=== PATIENT | female | born 1955 | race African-American/Black ===

== ENCOUNTER 2018-04-04 10:17 | Inpatient (IN) | payer OTHER ==
[2018-04-04 10:57] VITALS: BMI 25.7
--- NOTE | 2018-04-04 14:16 | HP ---
CIWA Score - Admission Criteria [facility] Guidelines: Admission for Medically Managed Detox: Requires at least one of the followin. CIWA greater than 12 2. Seizures within the past 24 hours 3. Delirium tremens within the past 24 hours 4. Hallucinations within the past 24 hours 5. Acute intervention needed for co occurring medical disorder 6. Acute intervention needed for co occurring psychiatric disorder 7. Severe withdrawal that cannot be handled at a lower level of care (continued vomiting, continued diarrhea, abnormal vital signs) requiring intravenous medication and/or fluids 8. Admission ROS S - HPI Chief Complaint: i am here for rehab from alcohol,cocaine and marijuana a Allergies/Adverse Reactions: Allergies Allergy/AdvReac Type Severity Reaction Status Date / Time dorzolamide Allergy Severe Itching Verified 04/04/18 14:03 History of Present Illness: this 63 years old female with alcohol,cocaine and marijuana dependence seeking rehab,last treatment [facility] 2014 [facility], stated seen by opth on 04/02/18 use new eyedrop ,has itching and tearing after,stated has allergic reaction to this medicine before cataract surgery in 2017 both glaucoma right eye since 2018 itching around periorbital area,no pain type 2 dm,htn schizophrenia,bipolar disorder for rehab - Ebola screening Have you traveled outside of the country in the last 21 days: No Have you had contact with anyone from an Ebola affected area: No Have you been sick,other than usual withdrawal symptoms: No - Review of Systems Constitutional: No Symptoms Reported EENT: reports: Other (s/p cataract surgery both eyes glaucma right eyes since 2018 ithching and tearing of right eye after [id number]/timolo maleate) Respiratory: reports: No Symptoms reported Cardiac: reports: No Symptoms Reported GI: reports: No Symptoms Reported : reports: No Symptoms Reported Musculoskeletal: reports: No Symptoms Reported Integumentary: reports: No Symptoms Reported Neuro: reports: No Symptoms reported Endocrine: reports: No Symptoms Reported Hematology: reports: No Symptoms Reported Psychiatric: reports: No Sypmtoms Reported, Judgement Intact, Mood/Affect Appropiate, Orientated x3, other (schizophrenia) Patient History - Patient Medical History Hx Asthma: Yes Hx Chronic Obstructive Pulmonary Disease (COPD): No Hx Cardiac Disorders: No Hx Hypertension: Yes (on meds.) Hx Seizures: No Hx Diabetes: Yes (on med) Hx Gastrointestinal Disorders: Yes (Pt has a hx of acid reflux.) Hx Liver Disease: No Hx Genitourinary Disorders: No Hx Sexually Transmitted Disorders: No Hx Renal Disease (ESRD): No Hx Thyroid Disease: No Hx Human Immunodeficiency Virus (HIV): No (last 2018 nrgative) Hx Hepatitis C: No Hx Depression: Yes Hx Suicide Attempt: No Hx Schizophrenia: No Other Medical History: no suicidal,no homicidal - Patient Surgical History Past Surgical History: Yes Hx Cataract Extraction: Yes (bilateral eyes in 2017) Other Surgical History: Sx for ectopic sx in 1981 - PPD History Previous Implant?: Yes Documented Results: Positive w/o proof Implanted On Prior R Admission?: No - Reproductive History Patient is a Female of Child Bearing Age (11 -55 yrs old): No Patient : No - Smoking Cessation Smoking history: Never smoked - Substance & Tx. History Hx Alcohol Use: Yes Hx Substance Use: Yes Substance Use Type: Alcohol, Cocaine Hx Substance Use Treatment: Yes ([facility] in [facility]) - Substances Abused Crack Route: Smoking Frequency: 1-3 times last 30 days Amount used: $800 Age of first use: 39 Date of Last Use: 04/01/18 Alcohol Route: Oral Frequency: 1-3 times last 30 days Amount used: 1-2 PINTS Age of first use: 12 Date of Last Use: 04/01/18 Family Disease History - Family Disease History Family History: Denies Family Disease History: Other: Father (), Mother (), Brother ( ) Admission Physical Exam [facility] - Vital Signs Vital Signs: Vital Signs - 24 hr 04/04/18 10:55 Temperature 98.2 F Pulse Rate 65 Respiratory 20 Rate Blood Pressure 137/78 - Physical General Appearance: Yes: Within Normal Limits HEENTM: Yes: Pharynx Normal, Other (tearing and itching right eye vision ok s/p cataract surgery both eyes glaucoma right eye) Respiratory: Yes: Lungs Clear, Normal Breath Sounds, No Respiratory Distress Neck: Yes: Within Normal Limits, Supple, Trachea in good position Breast: Yes: Breast Exam Deferred Cardiology: Yes: Within Normal Limits, Regular Rate, S1, S2 Abdominal: Yes: Within Normal Limits, Normal Bowel Sounds, Non Tender, Soft Genitourinary: Yes: Within Normal Limits Back: Yes: Within Normal Limits Musculoskeletal: Yes: Within Normal Limits Extremities: Yes: Within Normal Limits, Normal Inspection, Normal Range of Motion Neurological: Yes: Within Normal Limits, 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, Fully Oriented, Alert, Motor Strength 5/5 Integumentary: Yes: Within Normal Limits Lymphatic: Yes: Within Normal Limits - Diagnostic (1) Alcohol abuse Current Visit: Yes Status: Acute (2) Cocaine abuse Current Visit: Yes Status: Acute (3) Hypertension Current Visit: Yes Status: Acute (4) DM2 (diabetes mellitus, type 2) Current Visit: Yes Status: Acute (5) Schizophrenia Current Visit: Yes Status: Acute (6) Allergic eye reaction Current Visit: Yes Status: Acute Cleared for Admission [facility] - Detox or Rehab Claeared for Rehab Admission: Yes [facility] Breath Alcohol Content Breath Alcohol Content: 0 Urine Pregancy Test - Result Urine Test Results: Negative- NO Line Present Urine Drug Screen - Results Drug Screen Negative: No Urine Drug Screen Results: THC-Marijuana, AYANNA-Cocaine Inpatient Rehab Admission - Rehab Decision to Admit Inpatient rehab admission?: Yes - Initial Determination Are CD services needed?: Yes Free of communicable disease: Yes Not in need of hospitalization: Yes - Rehab Admission Criteria Previous failed treatment: Yes Poor recovery environment: Yes Comorbidities: Yes Lacks judgement: No Patient is meeting Inpatient Rehab admission criteria:: Yes
[2018-04-04] MEDS ORDERED: MAGNESIUM CITRATE 300 ML BOTTLE PO PRN (14:32)
[2018-04-04] MEDS ORDERED: LOPERAMIDE HCL 2 MG CAPSULE PO PRN (14:32)
[2018-04-04] MEDS ORDERED: MENTHOL/PHENOL 1 EACH UD MM PRN (14:32)
[2018-04-04] MEDS ORDERED: MAGNESIUM HYDROX 2400MG/30ML ORAL SUSPENSION 30 ML CUP PO PRN (14:32)
[2018-04-04] MEDS ORDERED: ACETAMINOPHEN 325 MG TABLET (FP) PO PRN (14:32)
[2018-04-04] MEDS ORDERED: MAG HYDROX/AL HYDROX/SIMETH 30 ML UNIT-DOSE CUP PO PRN (14:32)
[2018-04-04] MEDS ORDERED: P-EPHED 60MG/TRIPROLIDI 2.5MG TABLET PO PRN (14:32)
[2018-04-04] MEDS ORDERED: guaiFENesin/D-METHORPHAN HB 10 ML UNIT-DOSE CUPS PO PRN (14:32)
[2018-04-04] MEDS ORDERED: IBUPROFEN 400 MG TABLET (FP) PO PRN (14:32)
[2018-04-04] MEDS ORDERED: hydrOXYzine PAMOATE 25 MG CAPSULE (FP) PO PRN (14:32)
[2018-04-04] MEDS ORDERED: NAPROXEN 500 MG TABLET (FP) PO PRN (14:37)
[2018-04-04] MEDS ORDERED: ALBUTEROL SO4 8 GM HFA INHALER IH PRN (14:37)
[2018-04-04] MEDS ORDERED: DOCUSATE SODIUM 100 MG CAPSULE (FP) PO PRN (14:37)
[2018-04-04] MEDS ORDERED: LATANOPROST 0.005% OPHTH SOLN 2.5ML BOTTLE OU SCH (22:00)
[2018-04-04] MEDS ORDERED: MELATONIN 5 MG TABLETS PO PRN (22:00)
[2018-04-04] MEDS ORDERED: THIAMINE HCL 100 MG TABLET (FP) PO SCH (22:00)
[2018-04-04] MEDS: BUDESONIDE/FORMETEROL FUMARATE 160/4.5 mcg INHALER IH SCH (22:23)
[2018-04-04] MEDS: RANITIDINE HCL 150 MG TABLET (FP) PO SCH (22:25)
[2018-04-04] MEDS: TIMOLOL 0.25% OPHTHALMIC SOL 5 ML BOTTLE OU SCH (22:40)
[2018-04-04 23:20] LABS: URINE APPEARANCE TURBID; URINE BILIRUBIN NEGATIVE (<2.0 mg/dL); URINE COLOR YELLOW; URINE GLUCOSE (UA) NEGATIVE (NEGATIVE); URINE KETONE TRACE (NEGATIVE); URINE LEUK ESTERASE NEGATIVE (NEGATIVE); URINE NITRITE NEGATIVE (NEGATIVE); URINE PROTEIN NEGATIVE (NEGATIVE); URINE UROBILINOGEN 4.0 E.U/dl mg/dL (0.2-1.0)
[2018-04-05] MEDS ORDERED: metFORMIN HCL 500 MG TABLET (FP) PO SCH (07:00)
[2018-04-05 07:17] VITALS: TEMP 98.5
[2018-04-05] MEDS ORDERED: LISINOPRIL 10 MG TABLET (FP) PO SCH (10:00)
[2018-04-05] MEDS ORDERED: amLODIPine BESYLATE 10 MG TABLET (FP) PO SCH (10:00)
[2018-04-05] MEDS ORDERED: HYDROCHLOROTHIAZIDE 12.5 MG CAPSULE (FP) PO SCH (10:00)
[2018-04-05] MEDS ORDERED: ASPIRIN COATED 81 MG TABLET.EC PO SCH (10:00)
[2018-04-05] MEDS ORDERED: CALCIUM 500MG/VIT-D 200 UNITS COMBO TABLET (FP) PO SCH (10:00)
[2018-04-05] MEDS ORDERED: PRENATAL VITAMINS W/ FOLIC ACID TABLET (FP) PO SCH (10:00)
[2018-04-05] MEDS: RANITIDINE HCL 150 MG TABLET (FP) PO SCH (10:48)
[2018-04-05] MEDS: BUDESONIDE/FORMETEROL FUMARATE 160/4.5 mcg INHALER IH SCH (10:48)
[2018-04-05 10:49] VITALS: BP 149/85; PULSE 67
[2018-04-05] MEDS: TIMOLOL 0.25% OPHTHALMIC SOL 5 ML BOTTLE OU SCH (10:49)
[2018-04-05 10:50] LABS: HEMATOCRIT 39.3 % (32.4-45.2); HEMOGLOBIN 12.8 GM/dL (10.7-15.3); MCHC 32.6 g/dl (32.0-36.0); MEAN CELL VOLUME 82.9 fl (80-96); PLATELET COUNT 308 K/MM3 (134-434); RBC 4.74 M/mm3 (3.60-5.2); RDW 15.1 % (11.6-15.6); WHITE BLOOD COUNT 5.2 K/mm3 (4.0-10.0)
[2018-04-05 10:58] LABS: ALBUMIN 3.8 g/dl (3.4-5.0); ALK PHOS 80 U/L (45-117); ANION GAP 7 MMOL/L (8-16); BILIRUBIN,TOTAL 0.4 mg/dL (0.2-1); BLOOD UREA NITROGEN 19 mg/dL (7-18); CALCIUM 8.7 mg/dL (8.5-10.1); CHLORIDE 106 mmol/L (98-107); CO2 27 mmol/L (21-32); CREATININE 1.1 mg/dL (0.55-1.3); GLUCOSE,RANDOM 82 mg/dL (74-106); POTASSIUM 4.1 mmol/L (3.5-5.1); SGOT/AST 63 U/L (15-37); SGPT/ALT 29 U/L (13-61); SODIUM 140 mmol/L (136-145); TOT PROT 7.1 g/dl (6.4-8.2)
--- NOTE | 2018-04-05 15:50 | PN ---
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 PT REPORTS SHE HAS A PMD DR. MARY COCHRAN AT [facility] AND WILL FOLLOW UP WITH HER NEEDED. REPORTS SHE HAS OWN MEDS AT HOME. ALERT O X 3. Home Medications Medication Instructions Recorded Albuterol Sulfate Inhaler - 2 inh PO Q6H PRN 04/04/18 [Ventolin Hfa Inhaler -] Amlodipine Besylate [Norvasc -] 10 mg PO DAILY 04/04/18 Aripiprazole [Abilify -] 15 mg PO DAILY 04/04/18 Aspirin [Aspirin EC] 81 mg PO DAILY 04/04/18 Budesonide/Formeterol Fumarate 2 inh PO BID 04/04/18 [SYMBICORT 160/4.5mcg -] Bupropion HCl [Bupropion HCl Sr] 100 mg PO BID 04/04/18 Calcium Carbonate/Vitamin D3 1 each PO DAILY 04/04/18 [Calcium 600 + D3 Softgel] Docusate Sodium [Colace -] 100 mg PO TID PRN 04/04/18 Doxepin HCl [Sinequan -] 25 mg PO HS PRN 04/04/18 Gabapentin [Neurontin -] 300 mg PO Q8H 04/04/18 Ketotifen Fumarate [Itchy Eye] 5 ml OU BID 04/04/18 Latanoprost 0.005% Eye Drops 1 drop OU HS 04/04/18 [Xalatan 0.005% Eye Drops -] Lisinopril/Hydrochlorothiazide 1 each PO DAILY 04/04/18 [Lisinopril-Hctz 10-12.5 mg Tab] Lorazepam [Ativan] 0.5 mg PO QID 04/04/18 Metformin HCl [Glucophage] 1,000 mg PO BID 04/04/18 Naproxen [Naprosyn -] 500 mg PO BID PRN 04/04/18 Ranitidine [Zantac -] 150 mg PO BID 04/04/18 Sertraline HCl [Zoloft -] 50 mg PO DAILY 04/04/18 Simvastatin [Zocor -] 20 mg PO HS 04/04/18 Vital Signs - 24 hr 02/04/05/18 04/05/18 16:20 00:30 03:30 Temperature 98.6 F Pulse Rate 74 Respiratory 18 16 16 Rate Blood Pressure 116/79 04/05/18 04/05/18 07:16 10:00 Temperature 98.5 F Pulse Rate 60 67 Respiratory 18 Rate Blood Pressure 129/84 149/85 Laboratory Tests 04/04/18 04/04/18 04/04/18 12:13 12:15 17:19 WBC RBC Hgb Hct MCV MCH MCHC RDW Plt Count MPV Sodium Potassium Chloride Carbon Dioxide Anion Gap BUN Creatinine Creat Clearance w eGFR POC Glucometer 144 103 Random Glucose Calcium Total Bilirubin AST ALT Alkaline Phosphatase Total Protein Albumin Urine Color Urine Appearance Urine pH Ur Specific [place] Urine Protein Urine Glucose (UA) Urine Ketones Urine Blood Urine Nitrite Urine Bilirubin Urine Urobilinogen Ur Leukocyte Esterase RPR Titer HIV 1&2 Antibody Screen Negative HIV P24 Antigen Negative 04/04/18 04/05/18 04/05/18 21:00 06:00 06:00 WBC 5.2 RBC 4.74 Hgb 12.8 Hct 39.3 MCV 82.9 MCH 27.0 MCHC 32.6 RDW 15.1 Plt Count 308 MPV 9.0 Sodium 140 Potassium 4.1 Chloride 106 Carbon Dioxide 27 Anion Gap 7 L BUN 19 H Creatinine 1.1 Creat Clearance w eGFR 50.01 POC Glucometer Random Glucose 82 Calcium 8.7 Total Bilirubin 0.4 AST 63 H ALT 29 Alkaline Phosphatase 80 Total Protein 7.1 Albumin 3.8 Urine Color Yellow Urine Appearance Turbid Urine pH 5.0 Ur Specific Downey 1.030 Urine Protein Negative Urine Glucose (UA) Negative Urine Ketones Trace H Urine Blood Negative Urine Nitrite Negative Urine Bilirubin Negative Urine Urobilinogen 4.0 e.u/dl H Ur Leukocyte Esterase Negative RPR Titer HIV 1&2 Antibody Screen HIV P24 Antigen 04/05/18 04/05/18 06:00 07:04 WBC RBC Hgb Hct MCV MCH MCHC RDW Plt Count MPV Sodium Potassium Chloride Carbon Dioxide Anion Gap BUN Creatinine Creat Clearance w eGFR POC Glucometer 103 Random Glucose Calcium Total Bilirubin AST ALT Alkaline Phosphatase Total Protein Albumin Urine Color Urine Appearance Urine pH Ur Specific [place] Urine Protein Urine Glucose (UA) Urine Ketones Urine Blood Urine Nitrite Urine Bilirubin Urine Urobilinogen Ur Leukocyte Esterase RPR Titer Nonreactive HIV 1&2 Antibody Screen HIV P24 Antigen NAD MEDICALLY STABLE PLAN:PT TO FOLLOW UP AT [facility]. OPD ON 04/09/18 @1:30 PM FOLLOW UP WITH PMD DR MARY COCHRAN [facility] NEEDED.
[2018-04-05] MEDS ORDERED: KETOTIFEN FUMARATE OU SCH (22:00)
== END 2018-04-05 16:20 | disposition left against medical advice (07) | DRG 770 ==
LOC: YASAS 10:17 → Y3E 15:33
PROVIDERS: ADMIT Neuromusculoskeletal Medicine & OMM; ATTEND Neuromusculoskeletal Medicine & OMM
PROC: HZ42ZZZ Group Counseling for Substance Abuse Treatment, Cognitive-Behavioral (ICD-10-PCS; principal; 2018-04-04)
DX: F19.20 Other psychoactive substance dependence, uncomplicated (principal); F10.20 Alcohol dependence, uncomplicated; F14.20 Cocaine dependence, uncomplicated; F12.20 Cannabis dependence, uncomplicated; F20.9 Schizophrenia, unspecified; F31.9 Bipolar disorder, unspecified; I10 Essential (primary) hypertension; E11.9 Type 2 diabetes mellitus without complications; J45.909 Unspecified asthma, uncomplicated; H57.89 Other specified disorders of eye and adnexa; Z87.19 Personal history of other diseases of the digestive system
CPT/HCPCS: 36415; 80053; 81003; 82962; 85027; 86593; 87389